=== PATIENT | male | born 1990 | race African-American/Black ===

== ENCOUNTER 2018-08-14 18:38 | Emergency (ER) | payer SELFPAY ==
[2018-08-14 18:47] VITALS: BMI 25.7
--- NOTE | 2018-08-14 18:48 | PDOC ---
History of Present Illness - General Chief Complaint: Palpitations Stated Complaint: PALPITATIONS Time Seen by Provider: 08/14/18 18:48 - History of Present Illness Initial Comments: 08/14/18 19:45 The patient is a 27 year old male with a history of kidney stones who presents for evaluation of palpitations, anxiety, and chest pain. The patient states that he vaped marijuana oil and took more than he usually has in the past. He states he began experiencing severe anxiety, palpitations, tingling, and tremors prompting his presentation to the ED for further evaluation. He notes some associated poorly described chest pain as well. He denies similar symptoms in the past and otherwise denies fevers, chills, headache, SOB, nausea , vomiting, abdominal pain, or changes with urination or bowel movements. Past History - Past Medical History Allergies/Adverse Reactions: Allergies Allergy/AdvReac Type Severity Reaction Status Date / Time No Known Allergies Allergy Verified 01/31/12 17:40 Home Medications: Ambulatory Orders Ciprofloxacin [Cipro (Restricted To Id)] 500 mg PO DAILY #14 tablet 01/31/12 No Home Medications 0 dose .ROUTE UTDICT 01/31/12 COPD: No Kidney Stones: Yes - Suicide/Smoking/Psychosocial Hx Smoking Status: No Smoking History: Never smoked Have you smoked in the past 12 months: No Number of Cigarettes Smoked Daily: 0 Information on smoking cessation initiated: No Hx Alcohol Use: No Drug/Substance Use Hx: Yes Review of Systems - Review of Systems Comments:: 08/14/18 19:47 Constitutional: Anxiety. No fevers, chills, fatigue, malaise HEENT: No Rhinorrhea, nasal congestion, visual changes Cardiovascular: Chest pain, Palpitations. No syncope, lightheadedness Respiratory: No Cough, SOB, Hemoptysis, Gastrointestinal: No Abdominal pain, Nausea, Vomiting, Constipation, Diarrhea, Melena Genitourinary: No Dysuria, Frequency, Urgency, Hesitancy, Hematuria, Flank pain Musculoskeletal: No Myalgia, arthralgia Skin: No rashes, itching, bruising, pallor Neurologic:Tremulousness. No Headache, Dizziness, Numbness, Weakness, or Tingling Psychiatric: No Hallucinations. No SI or HI *Physical Exam - Vital Signs Last Vital Signs Temp Pulse Resp BP Pulse Ox 97.7 F 133 H 22 H 122/84 100 08/14/18 18:45 08/14/18 18:45 08/14/18 18:45 08/14/18 18:45 08/14/18 18:45 - Physical Exam Comments: 08/14/18 19:48 General Appearance: Nourished. Anxious appearing and tremulous on exam. No Apparent Distress HEENT: EOMI, RACHELLE. Injected conjunctiva bilaterally. No Pharyngeal Erythema, Tonsillar Exudate, Tonsillar Erythema Neck: No Cervical Lymphadenopathy Respiratory/Chest: Lungs Clear, Normal Breath Sounds. No Crackles, Rales, Rhonchi, Wheezing Cardiovascular: Regular Rhythm, Tachycardic Rate. No Murmur, Gallops, Rubs Gastrointestinal/Abdominal: Normal Bowel Sounds, Soft. No Guarding, Rebound, Tenderness Musculoskeletal: No CVA Tenderness Extremity: Normal Capillary Refill Integumentary: Normal Color, Dry, Warm Neurologic: retirement benefits specialist II-XII NML intact, Fully Oriented, Alert, Normal Mood/Affect, Normal Response, Motor Strength 5/5. Heart Score/ECG Review #1 ECG reviewed & interpreted by me at: 19:49 General ECG Interpretation: Sinus Rhythm, Normal Intervals, No acute ischemic changes 08/14/18 19:49 Sinus Tachycardia ED Treatment Course - LABORATORY CBC & Chemistry Diagram: 08/14/18 18:55 08/14/18 18:55 Medical Decision Making - Medical Decision Making 08/14/18 19:49 The patient is a 27 year old male with a history of kidney stones who presents for evaluation of palpitations, anxiety, and chest pain. Given the patient's history and physical exam, it is likely the patient's symptoms are due to his marijuana ingestion. However, we will obtain a cbc, cmp, troponin, tsh, ekg, tylenol level, alcohol level, aspirin level to evaluate further. We will treat the patient with 2mg of ativan and continue to monitor and reassess while here in the ED. 08/14/18 21:37 CBC are unremarkable. CMP demonstrates a creatinine of 1.4 and potassium of 3.3. Troponin, TSH are unremarkable. Tylenol levle, alcohol level, aspirin level are unremarkable. We treated the patient with 2 L of NS and Kdur. The patient was reassessed and reports improvement in their symptoms. We are comfortable discharging the patient home in stable condition. Patient and family made aware of impression and plan, return precautions discussed including but not limited to worsening pain or symptoms, fevers, or signs of infection, chest pain, respiratory distress, inability to tolerate oral intake, dehydration, syncope, or neurologic changes. The patient is to follow up with PMD as recommended within 1 week, follow up information provided and the patient will call for an appointment. The patient is to take medications as instructed for duration of time and continue with supportive care, avoid triggers and precipitants. Patient is safe for outpatient follow-up. *DC/Admit/Observation/Transfer Diagnosis at time of Disposition: Drug reaction Qualifiers: Encounter type: initial encounter Qualified Code(s): T50.905A - Adverse effect of unspecified drugs, medicaments and biological substances, initial encounter - Discharge Dispostion Disposition: HOME Condition at time of disposition: Stable - Referrals - Patient Instructions Printed Discharge Instructions: DI for Palpitations Additional Instructions: 1) Please follow-up with your primary care doctor in the next 2-3 days. Please call tomorrow to schedule a follow up appointment. If you cannot follow up with your doctor within 1 week please return to the Emergency Department for any urgent issues. 2) Your laboratory / imaging results were normal here in the ER. Please avoid using marijuana as this can cause your symptoms to re-occur. 3) If you have any worsening of symptoms or any other concerns please return to the ER immediately. Return if worsening symptoms including fevers, headache, vomiting, visual or hearing disturbances, abdominal pain, chest pain, shortness of breath, syncope, dehydration, inability to take things by mouth/vomiting, altered mental status, or worsening concerning symptoms. 4) Please continue taking your home medications as directed. - Post Discharge Activity
[2018-08-14] MEDS ORDERED: LORazepam 2 MG/ML SDV VIAL ONE (19:03)
[2018-08-14 19:13] LABS: BASO % 0.3 % (0-2.0); EOS % 1.6 % (0-4.5); HEMATOCRIT 43.9 % (35.4-49); HEMOGLOBIN 14.2 GM/dL (11.7-16.9); LYMPH % 32.9 % (8-40); MCH 32.2 pg (25.7-33.7); MCHC 32.4 g/dl (32.0-35.9); MEAN CELL VOLUME 99.2 fl (80-96); MONO % 6.8 % (3.8-10.2); NEUT % 58.4 % (42.8-82.8); PLATELET COUNT 286 K/MM3 (134-434); RBC 4.43 M/mm3 (4.00-5.60); RDW 12.6 % (11.9-15.9); WHITE BLOOD COUNT 8.3 K/mm3 (4.0-10.0)
[2018-08-14 19:54] LABS: ALBUMIN 4.4 g/dl (3.4-5.0); ALK PHOS 68 U/L (45-117); ANION GAP 13 MMOL/L (8-16); BILIRUBIN,TOTAL 0.8 mg/dL (0.2-1); BLOOD UREA NITROGEN 16 mg/dL (7-18); CALCIUM 9.3 mg/dL (8.5-10.1); CHLORIDE 104 mmol/L (98-107); CO2 22 mmol/L (21-32); CREATININE 1.4 mg/dL (0.55-1.3); GLUCOSE,RANDOM 162 mg/dL (74-106); POTASSIUM 3.3 mmol/L (3.5-5.1); SGOT/AST 21 U/L (15-37); SGPT/ALT 39 U/L (13-61); SODIUM 139 mmol/L (136-145); TOT PROT 8.4 g/dl (6.4-8.2)
[2018-08-14] MEDS ORDERED: POTASSIUM CHLORIDE TABS 20 MEQ TABLET.ER (FP) PO ONE ×2 (19:56→20:07)
[2018-08-14] MEDS ORDERED: SODIUM CHLORIDE 1,000 ML IV STA ×2 (19:56→21:01)
--- NOTE | 2018-08-14 20:01 | PDOC ---
Documentation entered by Yelena Skinner SCRIBE, acting as scribe for Ashley Toro DO. Ashley Toro DO: This documentation has been prepared by the Susanne hernandez Daisy, SCRIBE, under my direction and personally reviewed by me in its entirety. I confirm that the documentation accurately reflects all work, treatment, procedures, and medical decision making performed by me. Attending Attestation - Resident Resident Name: Hari Maloney - ED Attending Attestation I have performed the following: I have examined & evaluated the patient, The case was reviewed & discussed with the resident, I agree w/resident's findings & plan - HPI HPI: 08/14/18 19:17 The patient is a 27YOM, otherwise healthy, who presents with palpitations, anxiety and chest pain in the setting of vaping marijuana. Patient states he has used this before, but has not done it in a while. Allergies: NKDA - Physicial Exam PE: 08/14/18 20:03 ADULT PHYSICAL EXAM Constitutional: Awake, alert, oriented. (+) Anxious appearing. No signs of infection. Head: Normocephalic. Atraumatic Eyes: (+) Pupils are 4mm but reactive. (+) Scleral icterus. EOMI. Conjunctivae are not pale. Neck: Supple. Full ROM. No lymphadenopathy. Cardiovascular: (+) Tachycardic. Regular rhythm. S1, S2 regular. Distal pulses are 2+ and symmetric. Pulmonary/Chest: No evidence of respiratory distress. Clear to auscultation bilaterally. No wheezing, rales or rhonchi. Abdominal: Soft and non-distended. There is no tenderness. Musculoskeletal: No edema. Full range of motion in all extremities. Skin: Skin is warm and dry. No petechiae. No purpura. Neurological: Alert and oriented to person, place, and time. - Medical Decision Making 08/14/18 19:41 I, Dr. Ashley Toro DO, attest that this document has been prepared under my direction and personally reviewed by me in its entirety. I further attest, that it accurately reflects all work, treatment, procedures and medical decision -making performed by me. 08/14/18 19:41 a/p: 27yo male who smoked a vape marijuana and took too many hits of the marijuana and feels anxious -pt arrives tachycardic and anxious/agitated -pt states he did eat today -denies other drug use, no etoh use -pt denies cp/sob -states he feels palpitations -will send labs, ekg, cxr -will give ativan for anxiety and agitation -will monitor and reassess 08/14/18 20:44 mildly elevated cr will replace k ivf hydration running 08/14/18 21:42 pt drinking water feels better stable for dc to home Heart Score/ECG Review - ECG Intrepretation Comment:: 08/14/18 20:00 sinus tach at 132, nl axis, nl interval, no acute st/t wave findings
[2018-08-14 22:16] VITALS: BP 113/56; PULSE 98; TEMP 98.5
--- NOTE | 2018-08-15 14:59 | EKG ---
Test Reason : Blood Pressure : / mmHG Vent. Rate : 132 BPM Atrial Rate : 312 BPM P-R Int : 000 ms QRS Dur : 096 ms QT Int : 392 ms P-R-T Axes : 067 075 070 degrees QTc Int : 580 ms POOR DATA QUALITY, INTERPRETATION MAY BE ADVERSELY AFFECTED UNDETERMINED RHYTHM NONSPECIFIC T WAVE ABNORMALITY ABNORMAL ECG NO PREVIOUS ECGS AVAILABLE Confirmed by RIOS GREWAL MD ([id number]) on 08/15/2018 2:59:14 PM Referred By: Confirmed By:RIOS GREWAL MD
== END 2018-08-14 22:16 | disposition home or self-care (01) ==
LOC: JER 18:38
PROC: 3E0337Z Introduction of Electrolytic and Water Balance Substance into Peripheral Vein, Percutaneous Approach (ICD-10-PCS; principal; 2018-08-14)
PROC: 3E033NZ Introduction of Analgesics, Hypnotics, Sedatives into Peripheral Vein, Percutaneous Approach (ICD-10-PCS; 2018-08-14)
DX: T40.7X1A Poisoning by cannabis (derivatives), accidental (unintentional), initial encounter (principal); R00.2 Palpitations; F12.10 Cannabis abuse, uncomplicated; Y92.89 Other specified places as the place of occurrence of the external cause; E87.6 Hypokalemia
CPT/HCPCS: 36415; 80053; 80307; 82550; 82553; 84443; 84484; 85025; 93005; 93010; 99282-25; J7030